=== PATIENT | male | born 1995 | race Caucasian/White ===

== ENCOUNTER 2017-03-29 18:44 | Emergency (ER) | payer BC ==
[2017-03-29 18:51] VITALS: BP 127/76
[2017-03-29] MEDS ORDERED: DOXYcycline CAP(*) 100 MG PO ONE (19:49)
--- NOTE | 2017-03-29 20:02 | UC ---
Skin Complaint HPI - HPI Summary HPI Summary: TICK BITE RIGHT LOWER LEG, HAD BEEN ON LEG FOR AT LEAST 24 HOURS. ALSO FOR TWO DAYS HAS HAD SMALL NONTENDER LUMP IN (FEMORAL CREASE OF) PELVIS. - History of Current Complaint Chief Complaint: [facility] Time Seen by Provider: 03/29/17 19:44 Stated Complaint: BUG OR TICK BITE Hx Obtained From: Patient Onset/Duration: Sudden Onset Skin Exposure Onset/Duration: Hours Ago Onset Severity: Mild Current Severity: None Location: Discrete Aggravating: Nothing Alleviating: Nothing Associated Signs & Symptoms: Positive: Rash. Negative: Fever, Chills, Hoarseness, Throat Tightening, Syncope, Drainage, Bruising, Tenderness, Red Streaks Related History: Insect Bite/Sting, Possible Reaction to: Insect - Allergy/Home Medications Allergies/Adverse Reactions: Allergies Allergy/AdvReac Type Severity Reaction Status Date / Time Unable to Obtain Allergy Verified 03/29/17 18:51 Home Medications: Home Medications NK [No Home Medications Reported] 03/29/17 [History Confirmed 03/29/17] Review of Systems Constitutional: Negative Skin: Other - TICK REMOVED RIGHT POSTERIOR LEG Eyes: Negative ENT: Negative Respiratory: Negative Cardiovascular: Negative Gastrointestinal: Negative Genitourinary: Negative Motor: Negative Neurovascular: Negative Musculoskeletal: Negative Neurological: Negative Psychological: Negative All Other Systems Reviewed And Are Negative: Yes PMH/Surg Hx/FS Hx/Imm Hx Previously Healthy: Yes - Surgical History Surgical History: Yes Surgery Procedure, Year, and Place: t&a - Family History Known Family History: Negative: Blood Disorder - Social History Occupation: Student Lives: With Family Alcohol Use: Weekly Substance Use Type: Marijuana Substance Use Comment - Amount & Last Used: daily Smoking Status (MU): Current Some Day Smoker Physical Exam Triage Information Reviewed: Yes Appearance: Well-Appearing, No Pain Distress, Well-Nourished Vital Signs: Initial Vital Signs Temp 98.8 F 03/29/17 18:47 Pulse 65 03/29/17 18:47 Resp 18 03/29/17 18:47 BP 127/76 03/29/17 18:47 Pulse Ox 100 03/29/17 18:47 Vital Signs Reviewed: Yes Eye Exam: Normal ENT Exam: Normal ENT: Positive: Normal ENT inspection, TMs normal Dental Exam: Normal Neck exam: Normal Neck: Positive: Supple, Nontender, No Lymphadenopathy Respiratory Exam: Normal Respiratory: Positive: Chest non-tender, Lungs clear, Normal breath sounds, No respiratory distress, No accessory muscle use Cardiovascular Exam: Normal Cardiovascular: Positive: RRR, No Murmur, Pulses Normal Abdominal Exam: Normal Abdomen Description: Positive: Nontender, No Organomegaly, Soft, Other: - SMALL ENLARGED FIRM 0.5CM X 0.5CM LYMPHNODE LEFT FEMORAL CREASE Musculoskeletal Exam: Normal Musculoskeletal: Positive: Strength Intact, ROM Intact Neurological Exam: Normal Psychological Exam: Normal Course/Dx - Differential Diagnoses - Skin Complaint Differential Diagnoses: Lymphadenitis, Lymphangitis, Tick Born Illness - Diagnoses Provider Diagnoses: TICK BITE PROPHYLAXIS; LYMPHADENOPATHY LEFT FEMORAL CREASE Discharge - Discharge Plan Condition: Stable Disposition: HOME Patient Education Materials: Tick Bite (ED), Lymphadenopathy (ED) Referrals: [facility] [place] [facility] REFERRAL [Outside] [facility] @ [Outside] Images Front/Back of Body, Lg (Emmons): 1 - SMALL ENLARGED FIRM 0.5CM X 0.5CM LYMPHNODE LEFT FEMORAL CREASE 2 - TICK BITE REMOVED
== END 2017-03-29 20:06 | disposition home or self-care (01) ==
LOC: UCEAST 18:44
DX: Z79.899 Other long term (current) drug therapy (principal); W57.XXXA Bitten or stung by nonvenomous insect and other nonvenomous arthropods, initial encounter; Y93.9 Activity, unspecified; Y92.9 Unspecified place or not applicable; Y99.9 Unspecified external cause status; R59.1 Generalized enlarged lymph nodes
CPT/HCPCS: 99212; A9270-GY; G0463